=== PATIENT | female | born 1975 | race African-American/Black ===

== ENCOUNTER 2021-03-14 20:58 | Emergency (ER) | payer BC, MEDICAID ==
[~2021-03-14] VITALS: Ht 177.8 cm; Wt 80.0 kg
[2021-03-14] MEDS ORDERED: KETOROLAC 60MG/2ML VIAL IM ONE (21:45)
[2021-03-14] MEDS ORDERED: METH-653 MT (23:37)
[2021-03-14] MEDS ORDERED: IBUP-2029 MT (23:37)
[2021-03-15 01:30] VITALS: BP 144/98
== END 2021-03-15 01:30 | disposition home or self-care (01) ==
LOC: ER 20:58
DX: S76.012A Strain of muscle, fascia and tendon of left hip, initial encounter (principal); X58.XXXA Exposure to other specified factors, initial encounter; Y93.89 Activity, other specified; Y92.89 Other specified places as the place of occurrence of the external cause; Y99.8 Other external cause status; I10 Essential (primary) hypertension; Z98.890 Other specified postprocedural states
CPT/HCPCS: 73502; 96372; 99283; J1885

== ENCOUNTER 2021-05-15 08:00 | Emergency (ER) | payer MEDICAID ==
[~2021-05-15] VITALS: Ht 177.8 cm; Wt 78.0 kg
[~2021-05-15 08:00] MED LIST: IBUP-2029 MT; METH-653 MT
[2021-05-15] MEDS ORDERED: LIDOCAINE 5% PATCH TOP SCH (09:00)
[2021-05-15 09:39] LABS: BASOPHILS % 0.9 % (0.0-2.0); EOSINOPHILS % 5.9 % (0.0-5.0); HEMATOCRIT. 39.9 % (36.0-48.0); HEMOGLOBIN. 13.6 g/dL (12.0-16.0); LYMPHOCYTES % 34.8 % (20.0-50.0); MEAN CORPUSCULAR HEMOGLOBIN 32.7 pg (28.0-32.0); MEAN CORPUSCULAR VOLUME 96.1 fL (81.0-99.0); MEAN PLATELET VOLUME 8.6 fl (7.4-10.4); MONOCYTES % 13.7 % (2.0-8.0); NEUTROPHILS % 44.7 % (40.0-76.0); PLATELET 248 x1000/uL (130-400); RED BLOOD CELL COUNT 4.16 mill/uL (4.2-5.4); RED CELL DISTRIBUTION WIDTH 12.9 % (11.6-14.6)
[2021-05-15 09:47] LABS: CHLORIDE 105 mEq/L (98-107)
[2021-05-15 09:50] LABS: ETHANOL BLOOD < 10 mg/dL
[2021-05-15 09:57] LABS: HCG SCREEN NEGATIVE
[2021-05-15] MEDS ORDERED: ACET-2708 MT (11:46)
[2021-05-15] MEDS ORDERED: MED4 MT (11:46)
[2021-05-15] MEDS ORDERED: BACL-141 MT (11:46)
[2021-05-15] MEDS ORDERED: LIDO700A15 TP (11:46)
[2021-05-15] MEDS ORDERED: BUSP10TA4 MT (11:47)
[2021-05-15 11:57] LABS: CLARITY URINE CLEAR (CLEAR); COLOR URINE YELLOW (YELLOW); KETONES URINE NEGATIVE (NEGATIVE); LEUKOCYTE ESTERASE URINE NEGATIVE (NEGATIVE); NITRITE URINE NEGATIVE (NEGATIVE); OCCULT BLOOD URINE NEGATIVE (NEGATIVE); PROTEIN URINE NEGATIVE (NEGATIVE); SPECIFIC GRAVITY URINE 1.013 (1.005-1.030); UROBILINOGEN URINE 0.2 E.U./dL (0.2-1.0)
[2021-05-15] MEDS ORDERED: BUSPIRONE HCL 5MG TABLET PO SCH (12:00)
[2021-05-15 12:19] LABS: *COCAINE SCREEN URINE NEGATIVE (NEGATIVE)
[2021-05-15 12:20] LABS: *AMPHETAMINES SCREEN URINE NEGATIVE (NEGATIVE); *BARBITURATES SCREEN URINE NEGATIVE (NEGATIVE); *BENZODIAZEPINES SCREEN URINE NEGATIVE (NEGATIVE); METHADONE URINE SCREEN NEGATIVE (NEGATIVE); PHENCYCLIDINE URINE SCREEN NEGATIVE (NEGATIVE)
[2021-05-15 12:22] LABS: CANNABINOID URINE SCREEN PRESUMTIVE POSITIVE (NEGATIVE); OPIATES URINE SCREEN PRESUMTIVE POSITIVE (NEGATIVE)
[2021-05-15 13:30] VITALS: BP 160/99
== END 2021-05-15 13:45 | disposition home or self-care (01) ==
LOC: ER 08:17
DX: S13.9XXA Sprain of joints and ligaments of unspecified parts of neck, initial encounter (principal); T39.312A Poisoning by propionic acid derivatives, intentional self-harm, initial encounter; Y92.89 Other specified places as the place of occurrence of the external cause; F32.9 Major depressive disorder, single episode, unspecified; I10 Essential (primary) hypertension; X58.XXXA Exposure to other specified factors, initial encounter; Y93.89 Activity, other specified; Y99.8 Other external cause status; F12.10 Cannabis abuse, uncomplicated; Z98.890 Other specified postprocedural states; Z79.899 Other long term (current) drug therapy
CPT/HCPCS: 36415; 80053; 80305; 80307; 80320; 80329; 81003; 81025; 84703; 85025; 93005; 99284; G0480

== ENCOUNTER 2021-05-29 14:57 | Emergency (ER) | payer MEDICAID ==
[~2021-05-29] VITALS: Ht 177.8 cm; Wt 78.0 kg
[~2021-05-29 14:57] MED LIST changes: +ACET-2708 MT; +BACL-141 MT; +BUSP10TA4 MT; +LIDO700A15 TP; +MED4 MT
[2021-05-29] MEDS ORDERED: CYCLOBENZAPRINE 10MG TABLET PO ONE (15:15)
[2021-05-29] MEDS ORDERED: KETOROLAC 60MG/2ML VIAL IM ONE (15:15)
[2021-05-29] MEDS ORDERED: HYDROCODONE/ACETAMINOPHEN 5/325MG TABLET PO ONE (15:45)
[2021-05-29 15:48] VITALS: BP 134/87
[2021-05-29] MEDS ORDERED: NAPR-681 MT (18:00)
[2021-05-29] MEDS ORDERED: CYCL5TAB MT (18:00)
[2021-05-29] MEDS ORDERED: HYDR-4001 MT (18:26)
== END 2021-05-29 18:32 | disposition home or self-care (01) ==
LOC: ER 14:57
DX: M54.42 Lumbago with sciatica, left side (principal); I10 Essential (primary) hypertension; F12.10 Cannabis abuse, uncomplicated; Z79.899 Other long term (current) drug therapy
CPT/HCPCS: 72100; 96372; 99283; J1885

== ENCOUNTER 2022-12-04 10:52 | Emergency (ER) | payer MEDICAID ==
[~2022-12-04] VITALS: Ht 177.8 cm; Wt 86.5 kg
[~2022-12-04 10:52] MED LIST changes: +CYCL5TAB MT; +HYDR-4001 MT; +NAPR-681 MT
[2022-12-04 11:38] LABS: BASOPHILS % 1.1 % (0.0-2.0); EOSINOPHILS % 7.2 % (0.0-5.0); HEMATOCRIT. 42.2 % (36.0-48.0); LYMPHOCYTES % 38.1 % (20.0-50.0); MEAN CORPUSCULAR HEMOGLOBIN 33.7 pg (28.0-32.0); MEAN CORPUSCULAR VOLUME 95.2 fL (81.0-99.0); MEAN PLATELET VOLUME 8.7 fl (7.4-10.4); NEUTROPHILS % 42.6 % (40.0-76.0); PLATELET 256 x1000/uL (130-400); RED BLOOD CELL COUNT 4.43 mill/uL (4.2-5.4); RED CELL DISTRIBUTION WIDTH 12.9 % (11.6-14.6)
[2022-12-04 11:45] LABS: CHLORIDE 108 mEq/L (98-107)
[2022-12-04 12:02] VITALS: BP 140/97
== END 2022-12-04 12:35 | disposition home or self-care (01) ==
LOC: ER 10:52
DX: N64.4 Mastodynia (principal); I10 Essential (primary) hypertension; F12.10 Cannabis abuse, uncomplicated; Z98.890 Other specified postprocedural states; Z79.899 Other long term (current) drug therapy
CPT/HCPCS: 36415; 71045; 80053; 81025; 84484; 85025; 93005; 99285; Z7610

== ENCOUNTER 2023-05-03 18:51 | Emergency (ER) | payer MEDICAID ==
[2023-05-03 19:08] VITALS: PULSE 68; RESP 14
== END 2023-05-04 00:06 | disposition left against medical advice (07) ==
LOC: ER 18:51
DX: Z53.21 Procedure and treatment not carried out due to patient leaving prior to being seen by health care provider (principal)

== ENCOUNTER 2023-05-07 10:24 | Emergency (ER) | payer MEDICAID ==
[~2023-05-07] VITALS: Ht 172.7 cm; Wt 91.0 kg
[2023-05-07 10:31] VITALS: O2SAT 98
[2023-05-07] MEDS ORDERED: KETOROLAC 30MG/ML VIAL IM ONE (10:45)
[2023-05-07] MEDS ORDERED: NAPR-679 MT (11:27)
[2023-05-07 11:48] VITALS: BP 124/78; PULSE 99; RESP 18; TEMP 98.3
== END 2023-05-07 11:49 | disposition home or self-care (01) ==
LOC: ER 10:24
DX: S86.911A Strain of unspecified muscle(s) and tendon(s) at lower leg level, right leg, initial encounter (principal); M25.561 Pain in right knee; I10 Essential (primary) hypertension; F12.10 Cannabis abuse, uncomplicated; Z98.890 Other specified postprocedural states; X58.XXXA Exposure to other specified factors, initial encounter; Y93.89 Activity, other specified; Y92.89 Other specified places as the place of occurrence of the external cause; Y99.8 Other external cause status
CPT/HCPCS: 81025; 73562; 96372; 99283; J1885; Z7610

== ENCOUNTER 2023-06-24 15:36 | Emergency (ER) | payer MEDICAID ==
[~2023-06-24] VITALS: Ht 177.8 cm; Wt 83.0 kg
[~2023-06-24 15:36] MED LIST changes: +NAPR-679 MT
[2023-06-24 15:45] VITALS: BP 131/90; TEMP 98.9; O2SAT 98
[2023-06-24 15:46] VITALS: PULSE 103; RESP 16
== END 2023-06-24 18:45 | disposition home or self-care (01) ==
LOC: ER 15:36
DX: M79.675 Pain in left toe(s) (principal); I10 Essential (primary) hypertension; F12.10 Cannabis abuse, uncomplicated; Z79.899 Other long term (current) drug therapy
CPT/HCPCS: 73620; 99284; Z7610

== ENCOUNTER 2024-09-23 05:05 | Emergency (ER) | payer MEDICAID ==
[~2024-09-23] VITALS: Ht 167.6 cm; Wt 81.0 kg
[~2024-09-23 05:05] MED LIST changes: -CYCL5TAB MT; +CYCL5TAB3 MT; -MED4 MT; +METH4TAB95 MT
[2024-09-23 05:18] VITALS: TEMP 36.9; O2SAT 99
[2024-09-23 06:06] VITALS: BP 143/94; PULSE 96; RESP 17; O2SAT 98
== END 2024-09-23 06:00 | disposition home or self-care (01) ==
LOC: ER 05:29
DX: T46.1X1A Poisoning by calcium-channel blockers, accidental (unintentional), initial encounter (principal); I10 Essential (primary) hypertension; F10.90 Alcohol use, unspecified, uncomplicated; F12.90 Cannabis use, unspecified, uncomplicated; Z79.1 Long term (current) use of non-steroidal anti-inflammatories (NSAID); Z98.890 Other specified postprocedural states; Y92.89 Other specified places as the place of occurrence of the external cause; Y90.9 Presence of alcohol in blood, level not specified
CPT/HCPCS: 99281

== ENCOUNTER 2025-04-03 10:06 | Emergency (ER) | payer MEDICAID ==
[~2025-04-03] VITALS: Ht 177.8 cm; Wt 82.0 kg
[~2025-04-03 10:06] MED LIST changes: +IBUP-1455 MT; -IBUP-2029 MT; +LIDO-53 TP; -LIDO700A15 TP
[2025-04-03 10:18] VITALS: O2SAT 99
[2025-04-03] MEDS ORDERED: HYDR-459 MT (11:06)
[2025-04-03] MEDS ORDERED: GUAI200T5 MT (11:06)
[2025-04-03 11:15] VITALS: BP 150/92; PULSE 77; RESP 18; TEMP 37.1; O2SAT 99
== END 2025-04-03 11:16 | disposition home or self-care (01) ==
LOC: ER 10:18
DX: R09.81 Nasal congestion (principal); I10 Essential (primary) hypertension; F10.90 Alcohol use, unspecified, uncomplicated; F12.90 Cannabis use, unspecified, uncomplicated; Z79.1 Long term (current) use of non-steroidal anti-inflammatories (NSAID); Z79.899 Other long term (current) drug therapy; Y90.9 Presence of alcohol in blood, level not specified
CPT/HCPCS: 99283

== ENCOUNTER 2025-04-08 19:48 | Emergency (ER) | payer MEDICAID, OTHER ==
[~2025-04-08] VITALS: Ht 177.8 cm; Wt 82.0 kg
[~2025-04-08 19:48] MED LIST changes: +GUAI200T5 MT; +HYDR-459 MT
[2025-04-08 20:08] VITALS: O2SAT 99
[2025-04-08] MEDS: LIDOCAINE 5% PATCH TOP STA ×2 (21:51→21:52)
[2025-04-08] MEDS: KETOROLAC 30MG/ML VIAL IM ONE (21:52)
[2025-04-08] MEDS ORDERED: CYCL10TA21 MT (22:45)
[2025-04-08] MEDS ORDERED: LIDO700A30 TP (22:45)
[2025-04-08] MEDS ORDERED: IBUP-1455 MT (22:45)
[2025-04-08 23:08] VITALS: BP 161/95; PULSE 98; RESP 18; TEMP 36.7; O2SAT 100
== END 2025-04-08 23:42 | disposition home or self-care (01) ==
LOC: ER 19:48
DX: S80.12XA Contusion of left lower leg, initial encounter (principal); I10 Essential (primary) hypertension; Z79.1 Long term (current) use of non-steroidal anti-inflammatories (NSAID); V49.9XXA Car occupant (driver) (passenger) injured in unspecified traffic accident, initial encounter; Y93.89 Activity, other specified; Y92.410 Unspecified street and highway as the place of occurrence of the external cause; Y99.8 Other external cause status
CPT/HCPCS: 73560; 73590; 29505; 96372; 99284; J1885; A6449; Z7610